=== PATIENT | female | born 1995 | race American Indian/Alaskan Native ===

== ENCOUNTER 2018-05-10 09:13 | Inpatient (IN) | payer MEDICAID ==
[2018-05-10] MEDS ORDERED: AMPICILLIN/NS 2 GM/100 ML 2 GM/100 ML BAG IV ONE ×2 (09:48→09:57)
[2018-05-10] MEDS ORDERED: SUBLIMAZE IV PRN (09:48)
[2018-05-10] MEDS ORDERED: MINERAL OIL PO PRN (09:48)
[2018-05-10] MEDS ORDERED: XYLOCAINE 2% INFILTRATI ONE (09:48)
[2018-05-10] MEDS ORDERED: BRETHINE SUB-Q PRN (09:48)
--- NOTE | 2018-05-10 09:52 | History and Physical Report ---
History of Present Illness Date of examination: 05/10/18 (pt c/o pain in her rectum) History of present illness: Pt arrived by EMS Last visit to he OB was 04-08-18 "I moved to far away." Inocencio Clemente pt states her BP was elevated X 1 in her first while she was in labor. "I almost had a stroke." Pt states to nurse she had MGSO4 after delivery Medical HX denies Surgical HX hernia surgery as a child PT states she used marijuana oil in the ; denies other drug use Pt denies any complications in this Past History - Obstetrical History Expected Date of Delivery: 05/14/18 Actual Gestation: 39 Week(s) 3 Day(s) : 2 Para: 1 Hx # Term Pregnancies: 1 Number of Pregnancies: 0 Spontaneous Abortions: 0 Induced : 0 Number of Living Children: 1 - Vital Signs Vital signs: Vital Signs Pulse BP 91 H 125/83 05/10/18 09:30 05/10/18 09:30 Temp Pulse Resp BP Pulse Ox 91 H 125/83 05/10/18 09:30 05/10/18 09:30 - Physical Exam Breasts: Positive: deferred Cardiovascular: Regular rate, Normal S1, Normal S2 Lungs: Positive: Clear to auscultation Abdomen: Positive: normal appearance, soft, normal bowel sounds. Negative: distention, tenderness Genitourinary (Female): Positive: normal external genitalia Vulva: both: normal Vagina: Positive: normal moisture. Negative: discharge Cervix: Negative: lesion, discharge Uterus: Positive: normal size, normal contour Adnexa: both: normal Anus/Rectum: Positive: normal perianal skin, heme negative. Negative: rectal mass, hemorrhoids Extremities: Positive: normal Deep Tendon Reflex Grade: Normal +2 - Obstetrical FHR: category 1 Uterine Contraction Monitor Mode: External Cervical Dilatation: 8 Cervical Effacement Percentage: 90 station: 0 Uterine Contraction Pattern: Regular Uterine Tone Measurement Phase: Resting Uterine Contraction Intensity: Moderate Results Result Diagrams: 05/10/18 11:20 05/10/18 11:20 All other labs normal. Assessment and Plan 22yo @ 39 weeks in active labor Insufficient PNC Moved away from her provider @ [facility]. GBS unknown LEELA signed will try to get records SVE 8,90,0 All orders in EMR
[2018-05-10] MEDS ORDERED: PITOCin/NS 20 UNIT/1000ML DRIP 20 UNITS/1,000 ML BAG IV SCH (10:00)
[2018-05-10] MEDS ORDERED: LACTATED RINGERS 1,000 ML IV SCH (10:00)
[2018-05-10 11:05] LABS: Bacteria,Urine 1+ /HPF (Negative); Bilirubin,Urine NEG (Negative); Blood,Urine NEG (Negative); Color,Urine Yellow (Yellow); Mucus,Urine 2+ /HPF; Protein,Urine <15 mg/dL mg/dL (Negative)
--- NOTE | 2018-05-10 11:11 | Procedure Note ---
OB Delivery Note - Delivery Date of Delivery: 05/10/18 Solution Make Up Operator: HAYDE ARMSTRONG Estimated blood loss: 300cc - Vaginal Delivery presentation: vertex Delivery position: OA Intrapartum events: other(please specify) (very limited PNC) Delivery induction: none Delivery augmentation: rupture of membranes Delivery monitor: external FHT, external uterine Route of delivery: Delivery placenta: spontaneous Delivery cord: 3 umbilical vessels Episiotomy: none Delivery laceration: none Anesthesia: none Delivery comments: live born female over intact perineum To mom's abdomen skin to skin Cord blood obt Placenta and membrane delivered complete and intact, 3 vessel cord. 8/9, EBL 300, Wgt 6-8 Mom and baby remain LDR stable - Infant A at 1 minute: 8 at 5 minutes: 9 Gender: Female (wgt 6-8)
[2018-05-10 11:13] LABS: Amphetamine Screen,Urine PRESUMPTIVE NEGATIVE; Benzodiazepines Screen,Urine PRESUMPTIVE NEGATIVE; Cocaine Screen,Urine PRESUMPTIVE NEGATIVE; Methadone Screen,Urine PRESUMPTIVE NEGATIVE; Opiate Screen,Urine PRESUMPTIVE NEGATIVE
[2018-05-10 11:26] LABS: Cannabinoid Screen,Urine PRESUMPTIVE POSITIVE
[2018-05-10 11:59] LABS: Basophils % (Auto) 0.3 % (0.0-1.8); Eosinophils % (Auto) 0.2 % (0.0-4.3); Hematocrit 29.3 % (30.3-42.9); Hemoglobin 9.9 gm/dl (10.1-14.3); Lymphocytes # (Auto) 1.3 K/mm3 (1.2-5.4); Lymphocytes % (Auto) 12.6 % (13.4-35.0); Mean Corpuscular HGB Conc 34 % (30-34); Mean Corpuscular Volume 85 fl (79-97); Monocytes # (Auto) 0.6 K/mm3 (0.0-0.8); Monocytes % (Auto) 6.2 % (0.0-7.3); Platelet Count 273 K/mm3 (140-440); Red Blood Count 3.43 M/mm3 (3.65-5.03); Red Cell Distribution Width 14.4 % (13.2-15.2)
[2018-05-10 12:25] LABS: Alanine Aminotransferase 6 units/L (7-56); Uric Acid 3.9 mg/dL (3.5-7.6)
[2018-05-10] MEDS ORDERED: TUCKS PAD TP PRN (12:39)
[2018-05-10] MEDS ORDERED: TYLENOL PO PRN (12:39)
[2018-05-10] MEDS ORDERED: MILK OF MAGNESIA PO PRN (12:39)
[2018-05-10] MEDS ORDERED: DULCOLAX PR PRN (12:39)
[2018-05-10] MEDS ORDERED: ZOFRAN IV PRN (12:39)
[2018-05-10] MEDS ORDERED: BENADRYL PO PRN (12:39)
[2018-05-10] MEDS ORDERED: LANSINOH TP PRN (12:39)
[2018-05-10] MEDS ORDERED: PHENERGAN PO PRN (12:39)
[2018-05-10 12:55] LABS: Hepatitis C Virus Antibody Non-Reactive (NonReactive)
[2018-05-10] MEDS ORDERED: SODIUM CHLORIDE FLUSH SYRINGE 10 ML IV NR (13:00)
[2018-05-10] MEDS: IBUPROFEN PO SCH ×3 (16:23→20:00)
[2018-05-11] MEDS: IBUPROFEN PO SCH ×2 (01:30→07:57)
[2018-05-11 01:31] LABS: Hematocrit 27.5 % (30.3-42.9); Hemoglobin 9.1 gm/dl (10.1-14.3)
[2018-05-11] MEDS ORDERED: BOOSTRIX IM ONE (06:00)
[2018-05-11] MEDS ORDERED: M-M-R II VACCINE SUB-Q ONE (06:00)
--- NOTE | 2018-05-11 08:09 | Discharge Summary ---
Providers - Providers Date of Admission: 05/10/18 09:14 Date of discharge: 05/11/18 (pt desires d/c home) Attending physician: GABI DOMINGUEZ Primary care physician: GABI DOMINGUEZ Hospitalization Reason for admission: labor, unassigned patient Condition: Good Pertinent studies: post del H&H 9.1/27.5 - existing anemia Procedures: Hospital course: uncomplicated and course Disposition: DC- TO HOME OR SELFCARE - Discharge Diagnoses (1) Insufficient care in third trimester Status: Acute (2) Normal spontaneous vaginal delivery Status: Acute Core Measure Documentation - Palliative Care Palliative Care/ Comfort Measures: Not Applicable - Core Measures Any of the following diagnoses?: none Exam - Constitutional Vitals: Temp Pulse Resp BP Pulse Ox 99.2 F 65 20 130/74 100 05/11/18 00:20 05/11/18 00:20 05/11/18 00:20 05/11/18 00:20 05/11/18 00:20 General appearance: Present: no acute distress, well-nourished - EENT Eyes: Present: PERRL ENT: hearing intact, clear oral mucosa - Neck Neck: Present: supple, normal ROM - Respiratory Respiratory effort: normal Respiratory: bilateral: CTA - Cardiovascular Heart Sounds: Present: S1 & S2. Absent: rub, click - Extremities Extremities: pulses symmetrical, No edema Peripheral Pulses: within normal limits - Abdominal General gastrointestinal: Present: soft, non-tender, non-distended, normal bowel sounds Female genitourinary: Present: normal - Integumentary Integumentary: Present: clear, warm, dry - Musculoskeletal Musculoskeletal: gait normal, strength equal bilaterally - Psychiatric Psychiatric: appropriate mood/affect, intact judgment & insight - Neurologic Neurologic: CNII-XII intact, moves all extremities - Additional findings Additional findings: lochia scant, fundus firm, bottle feeding Plan Activity: no restrictions Diet: regular Follow up with: GABI DOMINGUEZ MD [Primary Care Provider] - 6 Weeks (Congratulations! Please call [phone] to schedule your visit in 6 weeks. Call for any questions or concerns.)
[2018-05-11 09:23] VITALS: BP 110/70
== END 2018-05-11 22:39 | disposition home or self-care (01) | DRG 775 ==
LOC: TRG 09:13 → LD 09:14 → TRG 09:14 → OB 13:36
PROVIDERS: ADMIT Obstetrics & Gynecology; ATTEND Obstetrics & Gynecology
PROC: 10E0XZZ Delivery of Products of Conception, External Approach (ICD-10-PCS; principal; 2018-05-10)
PROC: 3E0234Z Introduction of Serum, Toxoid and Vaccine into Muscle, Percutaneous Approach (ICD-10-PCS; 2018-05-11)
DX: O99.324 Drug use complicating childbirth (principal); F12.90 Cannabis use, unspecified, uncomplicated; Z3A.39 39 weeks gestation of pregnancy; Z37.0 Single live birth; Z23 Encounter for immunization
CPT/HCPCS: 36415; 80307; 81001; 82565; 83615; 84450; 84460; 84550; 85014; 85018; 85025; 85660; 86592; 86706; 86762; 86803; 86850; 86900; 86901; 87806; 88307; G0378; J0290; J7120